=== PATIENT | female | born 1940 | race Caucasian/White ===

== ENCOUNTER 2024-06-29 14:50 | Observation (INO) ==
--- NOTE | 2024-06-29 15:08 | Emergency Department Note ---
Impression & Plan Stroke-like symptoms, Hypertension ED Provider Note Provider: Handy Anders MD CHIEF COMPLAINT: Gait issues, speech issues, dizzy HISTORY OF PRESENT ILLNESS: Patient is a 84-year-old female generally healthy history of carpal tunnel release present with today noting that since 4 AM yesterday she is woke up and had dizziness issues varying intensity. Today it seems like her gait was more unsteady and she is holding onto things but has not fallen. Called her doctor's office and staff on the phone were concerned concerned that maybe her speech was a little bit garbled at times. Has been agrees a little bit. No numbness or tingling in the extremities. No weakness in the extremities. No chest pain or shortness of breath noted. No syncope. No history of CVA noted or family history reported. No recent illness or cough or cold symptoms reported. PAST MEDICAL HISTORY: As noted above MEDICATIONS: No current prescription although does get eye injections for macular degeneration SOCIAL HISTORY: , non-smoker PHYSICAL EXAM: GENERAL: alert and oriented in no acute distress on stretcher Head: normocephalic and atraumatic EYES: No injection, discharge or icterus. PERRL, EOMI. NECK: Trachea midline. Supple. ENT: Mucous membranes pink and moist. Pharynx without erythema or exudate. LUNGS: Airway patent. No retractions or tachypnea HEART: Irregular rate and rhythm. No chest wall tenderness ABDOMEN: Soft and non-tender, without guarding or rebound. SKIN: Acyanotic, warm, dry, without rashes EXTREMITIES: Without swelling, tenderness or deformity NEUROLOGICAL: No aphasia. Maybe the very slightest of right facial droop. Maybe a very slight slur to the speech. Normal strength and tone in the extremities. Sensation to gross touch normal. EK bpm normal sinus rhythm with PACs. No PVC. No acute ST segment elevation or depression with QTc of 451. CONTINUOUS CARDIAC MONITORING: was ordered and showed a heart rate of bpm in Patient's laboratory studies and imaging reviewed. Differential includes Infection, dehydration, metabolic abnormality, hypo/hyperglycemia, electrolyte disturbance, anemia, hypoxia, cardiac sources, intracerebral event, toxicologic, neurologic, as well as other pathologies. IMPRESSION/MEDICAL DECISION MAKING: Patient made a stroke alert from triage. Immediately sent to CT. Evaluated the patient in room A1. Last known well was more than [address] head per radiology without evidence of acute bleed or infarct noted by report. Patient without hemiplegia. Maybe a very slight right facial droop and slurred speech but otherwise grossly neurologically intact. CT angiograms obtained and per radiology report no acute occlusion stenosis or dissections reported.. Discussed with her she telestroke service. Dizziness started yesterday when she woke at 4 AM the last known well would be Tuesday night at bedtime however did have the speech issues starting around noon today. Is noted to be significantly hypertensive which she does not have a history of upon arrival here. Not having other infectious symptoms and doubt this is meningitic. Do question hypertensive emergency versus occult mild CVA. Does not seem to be in the timeframe for thrombolytics and again has minimal symptoms. Will allow permissive hypertension. UA completed and negative as respiratory viral panel. Discussed with telestroke who agree last known well would be more than 24 hours at this point no indication for thrombolytics. They recommended antiplatelet therapy and admission for further workup. Will allow permissive hypertension although blood pressure is trending improved here. 324 mg aspirin ordered. In discussion with the patient she is concerned this could be a side effect from her eye injections for macular degeneration. In any event we will bring in for further workup. Discussed with her and . Discussed with the hospitalist team here. DIAGNOSIS: Dizziness, strokelike symptoms, hypertensive urgency DISPOSITION: Hospitalist will evaluate Patient was agreeable with this plan. Past Med/Surg History Problem List (Updated 06/29/24 @ 20:20 by Handy Anders M.D.) Stroke-like symptoms (Acute) Hypertension (Acute) Stroke Medical History (Updated 06/29/24 @ 20:20 by Handy Anders M.D.) Macular degeneration Surgical History S/P carpal tunnel release Right. Dr Juarez S/P TKR (total knee replacement) bilateral, uoc Family History Father Tobacco abuse Sister COPD with chronic bronchitis Denies family history of Ovarian cancer Prostate cancer Myocardial infarction Breast cancer Colorectal cancer Social History Smoking Status: Never smoker Second Hand Exposure: No; Do You Dip or Chew Tobacco: No; Hx Alcohol Use: No Hx Substance Use: No Preferred Language: Kyrgyz Communication Ability: Effective Visual Impairment: Limited Hearing Ability: Hard of Hearing Brim Cutter Required: No Beliefs That Will Affect Care: None marital status: Current Living Situation: Spouse current occupational status: retired Feels Safe at Home: Yes Childhood Exposure to Second-Hand Smoke: Yes Diet: regular Dental Care, Regularly: Yes Physical Activity Frequency: Does not Exercise Seatbelt Use: always Sunscreen Use: Yes Assistive Devices: None Allergies Allergies Allergy/AdvReac Type Severity Reaction Status Date / Time warfarin Allergy Unknown NAILS TURN Verified 02/16/24 14:54 BLUE,FELT ILL,WASN'T FEELING HERSELF Home Meds Home Medications Medication Instructions Recorded Confirmed multivitamin 1 tab PO DAILY 02/16/24 06/29/24 Results & Data (ED) Vital Signs Vital Signs - 24 hr 06/29/24 14:54 06/29/24 15:19 06/29/24 15:20 Temperature 36.6 C Temperature Source Temporal Artery Scan Pulse Rate 88 80 Pulse Rate [Finger] 87 Pulse Rhythm [Finger] Regular Pulse Strength [Finger] Normal Respiratory Rate 18 18 20 Respiratory Effort / Characteristics Non-Labored Spontaneous Non-Labored Spontaneous Respiratory Depth Normal Normal Blood Pressure 215/99 H Blood Pressure [Right Arm] 221/100 H Blood Pressure Mean 137 Blood Pressure Mean [Right Arm] 140 Blood Pressure Position Sitting Blood Pressure Position [Right Arm] Sitting Pulse Oximetry 98 94 96 Oxygen Delivery Method Room Air Room Air Room Air Sepsis Recent Fever Within 48 Hours No Sepsis New/Unexplained Change in Mental Status No Sepsis Action Taken by Nursing No Action Required 06/29/24 15:23 Temperature Temperature Source Pulse Rate 84 Pulse Rate [Finger] Pulse Rhythm [Finger] Pulse Strength [Finger] Respiratory Rate Respiratory Effort / Characteristics Respiratory Depth Blood Pressure Blood Pressure [Right Arm] Blood Pressure Mean Blood Pressure Mean [Right Arm] Blood Pressure Position Blood Pressure Position [Right Arm] Pulse Oximetry Oxygen Delivery Method Sepsis Recent Fever Within 48 Hours Sepsis New/Unexplained Change in Mental Status Sepsis Action Taken by Nursing Laboratory Data 06/29/24 15:23 06/29/24 15:23 Lab Results 06/29/24 06/29/24 Range/Units 15:23 15:54 WBC 7.01 (4.8-10.8) K/ul RBC 4.41 (4.20-5.40) M/uL Hgb 13.4 (12.0-16.0) g/dl Hct 39.4 (37.0-47.0) % MCV 89.3 (80.0-100.0) fL MCH 30.4 (25.0-34.0) pg MCHC 34.0 (32.0-36.0) g/dL RDW Std Deviation 42.7 (36.4-46.3) fL RDW Coeff of Mic 13.0 (11.5-14.5) % Plt Count 179 (130-400) K/uL MPV 9.9 (9.4-12.4) fL PT 10.9 (9.0-12.0) Seconds INR 1.0 (0.9-1.1) APTT 25 (21-31) Seconds PTT Ratio 0.9 Sodium 140 (136-145) mmol/L Potassium 3.9 (3.5-5.1) mmol/L Chloride 108 H (98-107) mmol/L Carbon Dioxide 27 (21-32) mmol/L Anion Gap 5 (3-11) BUN 15 (6-23) mg/dl Creatinine 0.83 (0.6-1.2) mg/dl Est Cr Clr Drug Dosing 63.2 ml/min eGFR 69.47 BUN/Creatinine Ratio 18.1 (10-20) Glucose 111 H (70-99(Fasting)) mg/dl Calcium 8.7 (8.6-10.3) mg/dl Magnesium 1.9 (1.7-2.4) mg/dl Total Bilirubin 0.4 (0.2-1.0) mg/dl AST 19 (13-39) U/L ALT 15 (7-52) U/L Alkaline Phosphatase 60 (34-104) U/L Troponin I High Sens 8.8 (0-14) pg/ml Total Protein 6.6 (6.0-8.3) gm/dl Albumin 3.7 (3.4-5.0) gm/dl Globulin 2.9 (2.5-4.0) gm/dl Albumin/Globulin Ratio 1.3 (0.9-2) Urine Color Yellow Urine Appearance Clear (Clear) Urine pH 7.0 (4.5-7.5) Ur Specific [place] 1.043 H (1.000-1.030) Urine Protein Negative (Negative) Urine Glucose (UA) Negative (Negative) Urine Ketones Negative (Negative) Urine Blood Negative (Negative) Urine Nitrite Negative (Negative) Urine Bilirubin Negative (Negative) Urine Urobilinogen Negative (Negative) Ur Leukocyte Esterase Negative (Negative) Adenovirus (PCR) Not Detected (NotDetected) B. pertussis DNA (PCR) Not Detected (NotDetected) B.parapertussis DNA PCR Not Detected (NotDetected) C. pneumoniae DNA (PCR) Not Detected (NotDetected) Coronavirus OC43 (PCR) Not Detected (NotDetected) Coronavirus HKU1 (PCR) Not Detected (NotDetected) Coronavirus 229E (PCR) Not Detected (NotDetected) SARS-CoV-2 (PCR) Not Detected (NotDetected) Coronavirus NL63 (PCR) Not Detected (NotDetected) Human Metapneumovir PCR Not Detected (NotDetected) Influenza Type A (PCR) Not Detected (NotDetected) Influenza Type B (PCR) Not Detected (NotDetected) M. pneumoniae (PCR) Not Detected (NotDetected) Parainfluenza 1 (PCR) Not Detected (NotDetected) Parainfluenza 2 (PCR) Not Detected (NotDetected) Parainfluenza 3 (PCR) Not Detected (NotDetected) Parainfluenza 4 (PCR) Not Detected (NotDetected) RSV (PCR) Not Detected (NotDetected) Entero/Rhino (PCR) Not Detected (NotDetected) Administered Medications Clopidogrel Bisulfate (Clopidogrel Bisulfate 75 Mg Tab) 75 mg PO [facility] Stop: 07/29/24 18:17 Last Admin: 06/29/24 19:36 Dose: 75 mg Documented By: ULYSSES Discontinued Medications Aspirin (Aspirin Chew 324 Mg) 324 mg PO NOW STA Stop: 06/29/24 16:00 Last Admin: 06/29/24 16:01 Dose: 324 mg Documented By: DENIA Ioversol (Optiray 320 125ml) 120 ml IV ONCE ONE Stop: 06/29/24 15:13 Last Admin: 06/29/24 15:13 Dose: 120 ml Documented By: EDK Imaging Data Radiologist's Impression: Chest X-Ray 06/29/24 15:00 XR chest 1V portable CLINICAL HISTORY: stroke alert TECHNIQUE: Single frontal radiograph of the chest was obtained. Comparison: None available at the time of this dictation. FINDINGS: No lines and tubes are seen. Cardiomegaly is noted. The aortic arch is calcified. The lungs are clear. No evidence of pleural effusion or pneumothorax. IMPRESSION: No acute chest disease. ACT 112: Negative or not required by law. Electronically signed by: Leon Alegre M.D. 06/29/2024 3:[address] 06/29/24 15:00 CT head/brain wo con CLINICAL HISTORY: Neuro deficit, acute, stroke suspected Technique: Contiguous axial CT images of the head were acquired from the base of the skull to the vertex without intravenous contrast administration. Images were viewed in brain, subdural and bone windows. Automated dose lowering techniques and/or adjustment according to patient size were utilized for this exam. Comparison: None available at the time of this dictation. Findings: Areas of decreased attenuation are present in the periventricular and subcortical white matter bilaterally consistent with small vessel ischemic disease. Generalized cerebral atrophy with commensurate enlargement of the ventricles, sulci, and cisterns is also present. There is no acute intracranial hemorrhage or evidence of acute territorial infarction. No shift of the midline structures, mass effect, or extra-axial abnormalities are shown. Atherosclerotic calcifications are present in the intracranial segments of the internal carotid arteries. Imaged portions of the paranasal sinuses and mastoid air cells are clear. The orbits appear normal. There are no acute fractures of the calvaria or scalp swelling. Impression: No acute intracranial hemorrhage, no evidence of acute territorial infarction or other acute intracranial disease process. ACT 112: Negative or not required by law. Electronically signed by: Leon Alegre M.D. 06/29/2024 3:12 PM Head CTA 06/29/24 15:05 CT angio head w con CLINICAL HISTORY: 84 years-old Female with dizzy, speech issues. Acute dizziness with strokelike symptoms COMPARISON STUDY: Head CT of same day TECHNIQUE: Following the IV administration of 120 cc of Optiray, CT angiogram of the brain was performed from the skull base to the vertex. Images are reviewed in the axial, sagittal, and coronal planes. 3-D MIPS images are created and assessed. IV contrast was administered without complication. All measurements were obtained according to NASCET criteria. A dose lowering technique was utilized adhering to the principles of ALARA. CT DOSE: 463.78 mGy.cm FINDINGS: CT BRAIN: Dictated separately. CT ANGIOGRAM OF THE BRAIN: The imaged bilateral internal carotid arteries are patent. The bilateral anterior and middle cerebral arteries are also patent. The vertebrobasilar system and posterior cerebral arteries are widely patent. There is no aneurysm, high-grade stenosis, or proximal branch occlusion identified. Dural sinuses appear patent. IMPRESSION: Unremarkable CTA of the head. ACT 112: Negative or not required by law. The above report was generated using voice recognition software. It may contain grammatical, syntax or spelling errors. Electronically signed by: Gerardo Adams M.D. 06/29/2024 3:24 PM Neck CTA 06/29/24 15:05 CT angio neck with con CLINICAL HISTORY: dizzy, speech issues, gait issues TECHNIQUE: CT angiography of the neck was performed following intravenous administration of iodinated contrast. Coronal and sagittal MIPS were obtained from the axial data set and were submitted for review. Automated dose lowering techniques and/or adjustment according to patient size were utilized for this examination. All measurements were calculated based on NASCET criteria. Comparison: None available at the time of this dictation. FINDINGS: Lungs and soft tissues are unremarkable. CTA Neck: A 3 vessel aortic arch is shown. There is no significant atherosclerotic plaque in the aortic arch or the origins of the innominate, left common carotid, and left subclavian arteries. Retropharyngeal course of the bilateral internal carotid arteries noted. The common carotid, external carotid, cervical segments of the internal carotid arteries, and the cervical segments of the vertebral arteries are patent without hemodynamically significant stenosis. The left vertebral artery is dominant. IMPRESSION: No occlusion, hemodynamically significant stenosis, or dissection in the major cervical arteries. Assessment of stenosis of the internal carotid arteries is based on NASCET criteria. ACT 112: Negative or not required by law. Electronically signed by: Leon Alegre M.D. 06/29/2024 3:23 PM Discharge Plan Visit Data Chief Complaint: TIA Symptoms Stated Complaint: DIZZY, SOB, SLURRED SPEECH, CONFUSION ED Provider: Handy Anders Discharge Problem: Stroke-like symptoms, Hypertension Patient Disposition: Admitted As Inpatient Discharge Instructions Interventions: ED Discharge Assessment Last Done: 06/29/24 17:38
[2024-06-29] MEDS: OPTIRAY 320 125ml IV ONE (15:13)
--- NOTE | 2024-06-29 15:13 | CT Scan Report ---
CT head/brain wo con CLINICAL HISTORY: Neuro deficit, acute, stroke suspected Technique: Contiguous axial CT images of the head were acquired from the base of the skull to the katlyn jerald without intravenous contrast administration. Images were viewed in brain, subdural and [facility]. Automated dose lowering techniques and/or adjustment according to patient size were utilized for this exam. Comparison: None available at the time of this dictation. Findings: Areas of decreased attenuation are present in the periventricular and subcortical white matter bilate rally consistent with small vessel ischemic disease. Generalized cerebral atrophy with commensurate e nlargement of the ventricles, sulci, and cisterns is also present. There is no acute intracranial hem orrhage or evidence of acute territorial infarction. No shift of the midline structures, mass effect, or extra-axial abnormalities are shown. Atherosclerotic calcifications are present in the intracran ial segments of the internal carotid arteries. Imaged portions of the paranasal sinuses and mastoid air cells are clear. The orbits appear normal. There are no acute fractures of the calvaria or scalp swelling. Impression: No acute intracranial hemorrhage, no evidence of acute territorial infarction or other acute intracra nial disease process. ACT 112: Negative or not required by law. Electronically signed by: Leon Alegre M.D. 06/29/2024 3:12 PM
--- NOTE | 2024-06-29 15:24 | CT Scan Report ---
CT angio neck with con CLINICAL HISTORY: dizzy, speech issues, gait issues TECHNIQUE: CT angiography of the neck was performed following intravenous administration of iodinated contrast. Coronal and sagittal MIPS were obtained from the axial data set and were submitted for rev iew. Automated dose lowering techniques and/or adjustment according to patient size were utilized fo r this examination. All measurements were calculated based on NASCET criteria. Comparison: None available at the time of this dictation. FINDINGS: Lungs and soft tissues are unremarkable. CTA Neck: A 3 vessel aortic arch is shown. There is no significant atherosclerotic plaque in the aor tic arch or the origins of the innominate, left common carotid, and left subclavian arteries. Retrop haryngeal course of the bilateral internal carotid arteries noted. The common carotid, external carot id, cervical segments of the internal carotid arteries, and the cervical segments of the vertebral ar teries are patent without hemodynamically significant stenosis. The left vertebral artery is dominant . IMPRESSION: No occlusion, hemodynamically significant stenosis, or dissection in the major cervical arteries. Assessment of stenosis of the internal carotid arteries is based on NASCET criteria. ACT 112: Negative or not required by law. Electronically signed by: Leon Alegre M.D. 06/29/2024 3:23 PM
--- NOTE | 2024-06-29 15:25 | CT Scan Report ---
CT angio head w con CLINICAL HISTORY: 84 years-old Female with dizzy, speech issues. Acute dizziness with strokelike s ymptoms COMPARISON STUDY: Head CT of same day TECHNIQUE: Following the IV administration of 120 cc of Optiray, CT angiogram of the brain was perfor med from the skull base to the vertex. Images are reviewed in the axial, sagittal, and coronal planes . 3-D MIPS images are created and assessed. IV contrast was administered without complication. All me asurements were obtained according to NASCET criteria. A dose lowering technique was utilized adherin g to the principles of ALARA. CT DOSE: 463.78 mGy.cm FINDINGS: CT BRAIN: Dictated separately. CT ANGIOGRAM OF THE BRAIN: The imaged bilateral internal carotid arteries are patent. The bilateral anterior and middle cerebral arteries are also patent. The vertebrobasilar system and posterior cerebral arteries are widely armenta nt. There is no aneurysm, high-grade stenosis, or proximal branch occlusion identified. Dural sinuses appear patent. IMPRESSION: Unremarkable CTA of the head. ACT 112: Negative or not required by law. The above report was generated using voice recognition software. It may contain grammatical, syntax o r spelling errors. Electronically signed by: Gerardo Adams M.D. 06/29/2024 3:24 PM
[2024-06-29 15:37] LABS: Hematocrit (blood only) 39.4 % (37.0-47.0); Hemoglobin 13.4 g/dl (12.0-16.0); Mean Corpuscular Hemoglobin 30.4 pg (25.0-34.0); Mean Corpuscular Volume 89.3 fL (80.0-100.0); Mean Platelet Volume 9.9 fL (9.4-12.4); Platelet Count 179 K/uL (130-400); RDW Standard Deviation 42.7 fL (36.4-46.3); Red Blood Count 4.41 M/uL (4.20-5.40); White Blood Count 7.01 K/ul (4.8-10.8)
--- NOTE | 2024-06-29 15:40 | XRay Report ---
XR chest 1V portable CLINICAL HISTORY: stroke alert TECHNIQUE: Single frontal radiograph of the chest was obtained. Comparison: None available at the time of this dictation. FINDINGS: No lines and tubes are seen. Cardiomegaly is noted. The aortic arch is calcified. The lungs are clear . No evidence of pleural effusion or pneumothorax. IMPRESSION: No acute chest disease. ACT 112: Negative or not required by law. Electronically signed by: Leon Alegre M.D. 06/29/2024 3:38 PM
[2024-06-29] MEDS: ASPIRIN CHEW 324 MG PO STA (16:01)
[2024-06-29 16:02] LABS: Albumin Globulin Ratio 1.3 (0.9-2); Albumin Level 3.7 gm/dl (3.4-5.0); BUN Creatinine Ratio 18.1 (10-20); Bilirubin,Total 0.4 mg/dl (0.2-1.0); Calcium 8.7 mg/dl (8.6-10.3); Creatinine Clr Calc Pharmacy 63.2 ml/min; Globulin 2.9 gm/dl (2.5-4.0); Magnesium 1.9 mg/dl (1.7-2.4); Potassium 3.9 mmol/L (3.5-5.1); Total Protein 6.6 gm/dl (6.0-8.3)
[2024-06-29 16:08] LABS: Appearance Urine Clear (Clear); Bilirubin Urine Negative (Negative); Blood Urine Negative (Negative); Color Urine Yellow; Glucose Urine UA Negative (Negative); Ketones Urine Negative (Negative); Leukocyte Esterase Urine Negative (Negative); Nitrite Urine Negative (Negative); Protein Urine Negative (Negative); Specific Gravity Urine 1.043 (1.000-1.030); Urobilinogen Urine Negative (Negative)
[2024-06-29 16:09] LABS: Troponin I High Sensitivity 8.8 pg/ml (0-14)
[2024-06-29 16:10] LABS: Partial Thromboplastin Ratio 0.9; Partial Thromboplastin Time 25 Seconds (21-31); Prothrombin Time 10.9 Seconds (9.0-12.0)
[2024-06-29 16:19] LABS: Adenovirus PCR Not Detected (NotDetected); Bordetella parapertussis PCR Not Detected (NotDetected); Bordetella pertussis PCR Not Detected (NotDetected); Chlamydia pneumoniae PCR Not Detected (NotDetected); Coronavirus 229E PCR Not Detected (NotDetected); Coronavirus CoV-2 (COVID19)PCR Not Detected (NotDetected); Coronavirus HKU1 PCR Not Detected (NotDetected); Coronavirus NL63 PCR Not Detected (NotDetected); Coronavirus OC43PCR Not Detected (NotDetected); Human Metapneumovirus PCR Not Detected (NotDetected); Influenza A PCR Not Detected (NotDetected); Influenza B PCR Not Detected (NotDetected); Mycoplasma pneumoniae PCR Not Detected (NotDetected); Parainfluenza Virus 1 PCR Not Detected (NotDetected); Parainfluenza Virus 2 PCR Not Detected (NotDetected); Parainfluenza Virus 3 PCR Not Detected (NotDetected); Parainfluenza Virus 4 PCR Not Detected (NotDetected); Respiratory Syncytial VirusPCR Not Detected (NotDetected); Rhinovirus/Enterovirus PCR Not Detected (NotDetected)
[2024-06-29 17:36] VITALS: RESP 18
--- NOTE | 2024-06-29 17:39 | History & Physical Report ---
Date of Service June 29, 2024 Assessment & Plan (1) Stroke: Plan: 84-year-old woman with history of macular degeneration on no home medications presenting with stroke/TIA symptoms she was experiencing lightheadedness/vertigo (resolved), unsteady gait, slight slurring of speech and slight facial droop with which her thinks has improved or resolved on my exam she has mild right facial droop, tongue deviates to the right, mild slurring or deliberateness of speech, questionable right upper extremity drift, right lower extremity weakness. RLE exam is challenged by old injury to foot and ankle. onset of symptoms was 4 AM yesterday thus outside the window for thrombolytics. telestroke neurologist was consulted by the ED and recommended aspirin and plavix, stroke evaluation differential diagnosis includes hypertensive encephalopathy, however, the symptoms are focal so this seems less likely to me # stroke or TIA -admit to PCU under observation -aspirin and plavix, statin -brain MRI -TTE with bubble -monitor neuro exam -permissive hypertension -AM lipid panel, A1c, CBC BMP -PT/OT/ST evals # hypertension - unclear whether situational (ED, anxiety) or could be stroke related. She states her BP is usually in 120s systolic. I see a few elevated readings from old vitals in [facility] -monitor, permissive hypertension for now -prefer IV labetalol PRN severe hypertension vs hydralazine because of safety profile # macular degeneration - she states her eye injections are associated with increased risk of cardiovascular events including stroke - this is a possible adverse event from anti-VEGF injections. Sounds like she may be on Eylea (aflibercept). DVT ppx - SQ heparin 5000u bid She hopes to discharge tomorrow since her grandchildren will be arriving. 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 Yesterday she noticed a gait disturbance and said "I could not walk a straight line yesterday or today if I had to" her noticed some mild slurring of speech and facial asymmetry today and she called the doctor's office, the nurse over the phone instructed her to seek immediate evaluation in the emergency room. She has a history of macular degeneration and gets monthly eye injections for this. She has not noticed any changes in her vision. No headache nausea or vomiting. No overt weakness but she feels like her right hand more than her left hand is somewhat off like it is harder to grasp objects. No numbness of her face or extremities. Her blood pressure was severely elevated when she first arrived in the ED at greater than 220/100, she denies any history of hypertension. On sustained observation her blood pressure has improved without treatment currently in the 180s/low 90s. She has not had any chest pain or dyspnea. No recent URI type symptoms such as fever chills cough sore throat nasal congestion etc. No changes in her hearing, she does have baseline hearing loss. She has no personal history of atrial fibrillation and never has had any symptoms of TIA or stroke in the past. No history of heart disease, and no family history of Stroke or CAD. Allergies Allergy/AdvReac Type Severity Reaction Status Date / Time warfarin Allergy Unknown NAILS TURN Verified 02/16/24 14:54 BLUE,FELT ILL,WASN'T FEELING HERSELF Home Medications Medication Instructions Recorded Confirmed Type multivitamin 1 tab PO DAILY 02/16/24 06/29/24 History Past Med/Surg History Problem List (Updated 06/29/24 @ 17:24 by Kasey Osborne MD) Hypertension Stroke Medical History (Updated 06/29/24 @ 17:24 by Kasey Osborne MD) Macular degeneration Surgical History S/P carpal tunnel release Right. Dr Juarez S/P TKR (total knee replacement) bilateral, uoc Family History Father Tobacco abuse Sister COPD with chronic bronchitis Denies family history of Ovarian cancer Prostate cancer Myocardial infarction Breast cancer Colorectal cancer Social History Smoking Status: Never smoker Second Hand Exposure: No; Do You Dip or Chew Tobacco: No; Hx Alcohol Use: No Hx Substance Use: No Preferred Language: German Visual Impairment: Limited Hearing Ability: Hard of Hearing marital status: Current Living Situation: Spouse current occupational status: retired Feels Safe at Home: Yes Childhood Exposure to Second-Hand Smoke: Yes Diet: regular Dental Care, Regularly: Yes Physical Activity Frequency: Does not Exercise Seatbelt Use: always Sunscreen Use: Yes Review of Systems 2 Review of Systems: All systems reviewed & are unremarkable except as noted in HPI & below Physical Exam 2 Physical Exam: PHYSICAL EXAMINATION Last 24h vital signs reviewed, see documentation in flowsheet General: comfortable appearing, no distress HEENT: Normocephalic, atraumatic, pupils round and equal, sclerae anicteric, no conjunctival injection, moist mucus membranes Lungs: Normal respiratory effort. Clear to auscultation bilaterally. No RRW Heart: irregularly irregular rate and rhythm, no murmurs. No JVD Abdomen: Soft, nontender, nondistended. Bowel sounds present. Extremities: Warm, dry, well-perfused. No extremity edema. chronic deformity of right foot and ankle from an old injury. bilateral TKA scars Neuro: Alert and oriented x 4, mild right facial droop, tongue deviates to the right, I cannot see her posterior pharynx, EOMI, no nystagmus, she has very poor vision in her right eye visual field is full with her left eye, she is hard of hearing, shoulder shrug is intact, strength exam remarkable for possibly very subtle right upper extremity pronator drift versus normal, biceps triceps deltoids and commercial leasing manager are 5 out of 5 bilaterally, right hip flexor is significant weaker than left, right dorsi flexion is weak left is normal, plantarflexion is 5 out of 5 bilaterally. FNF and CYNDI normal for UEs. Unable to to HTS because of hip mobility/TKAs Psych: Normal affect and behavior Results & Data Results & Data Vital Signs (Past 12 Hours) Vital Signs Temp Pulse Pulse Resp BP BP Pulse Ox 06/29/24 15:23 84 06/29/24 15:20 87 20 221/100 H 96 06/29/24 15:19 80 18 94 06/29/24 14:54 97.9 F 88 18 215/99 H 98 O2 Del Method 06/29/24 15:23 06/29/24 15:20 Room Air 06/29/24 15:19 Room Air 06/29/24 14:54 Room Air Laboratory Results 06/29/24 15:23 06/29/24 15:23 CBC is normal as above and renal function is normal, electrolytes are normal including magnesium additional data I reviewed includes normal coags, high-sensitivity troponin normal at 8.8, normal LFTs, normal LFTs, negative urinalysis, respiratory bio fire panel is normal/negative Diagnostic Findings I personally reviewed her EKG tracing machine read as atrial fibrillation however I do not see atrial fibrillation, she clearly has P waves with some PACs Chest X-Ray 06/29/24 15:00 XR chest 1V portable CLINICAL HISTORY: stroke alert TECHNIQUE: Single frontal radiograph of the chest was obtained. Comparison: None available at the time of this dictation. FINDINGS: No lines and tubes are seen. Cardiomegaly is noted. The aortic arch is calcified. The lungs are clear. No evidence of pleural effusion or pneumothorax. IMPRESSION: No acute chest disease. ACT 112: Negative or not required by law. Electronically signed by: Leon Alegre M.D. 06/29/2024 3:[address] 06/29/24 15:00 CT head/brain wo con CLINICAL HISTORY: Neuro deficit, acute, stroke suspected Technique: Contiguous axial CT images of the head were acquired from the base of the skull to the vertex without intravenous contrast administration. Images were viewed in brain, subdural and bone windows. Automated dose lowering techniques and/or adjustment according to patient size were utilized for this exam. Comparison: None available at the time of this dictation. Findings: Areas of decreased attenuation are present in the periventricular and subcortical white matter bilaterally consistent with small vessel ischemic disease. Generalized cerebral atrophy with commensurate enlargement of the ventricles, sulci, and cisterns is also present. There is no acute intracranial hemorrhage or evidence of acute territorial infarction. No shift of the midline structures, mass effect, or extra-axial abnormalities are shown. Atherosclerotic calcifications are present in the intracranial segments of the internal carotid arteries. Imaged portions of the paranasal sinuses and mastoid air cells are clear. The orbits appear normal. There are no acute fractures of the calvaria or scalp swelling. Impression: No acute intracranial hemorrhage, no evidence of acute territorial infarction or other acute intracranial disease process. ACT 112: Negative or not required by law. Electronically signed by: Leon Alegre M.D. 06/29/2024 3:12 PM Head CTA 06/29/24 15:05 CT angio head w con CLINICAL HISTORY: 84 years-old Female with dizzy, speech issues. Acute dizziness with strokelike symptoms COMPARISON STUDY: Head CT of same day TECHNIQUE: Following the IV administration of 120 cc of Optiray, CT angiogram of the brain was performed from the skull base to the vertex. Images are reviewed in the axial, sagittal, and coronal planes. 3-D MIPS images are created and assessed. IV contrast was administered without complication. All measurements were obtained according to NASCET criteria. A dose lowering technique was utilized adhering to the principles of ALARA. CT DOSE: 463.78 mGy.cm FINDINGS: CT BRAIN: Dictated separately. CT ANGIOGRAM OF THE BRAIN: The imaged bilateral internal carotid arteries are patent. The bilateral anterior and middle cerebral arteries are also patent. The vertebrobasilar system and posterior cerebral arteries are widely patent. There is no aneurysm, high-grade stenosis, or proximal branch occlusion identified. Dural sinuses appear patent. IMPRESSION: Unremarkable CTA of the head. ACT 112: Negative or not required by law. The above report was generated using voice recognition software. It may contain grammatical, syntax or spelling errors. Electronically signed by: Gerardo Adams M.D. 06/29/2024 3:24 PM Neck CTA 06/29/24 15:05 CT angio neck with con CLINICAL HISTORY: dizzy, speech issues, gait issues TECHNIQUE: CT angiography of the neck was performed following intravenous administration of iodinated contrast. Coronal and sagittal MIPS were obtained from the axial data set and were submitted for review. Automated dose lowering techniques and/or adjustment according to patient size were utilized for this examination. All measurements were calculated based on NASCET criteria. Comparison: None available at the time of this dictation. FINDINGS: Lungs and soft tissues are unremarkable. CTA Neck: A 3 vessel aortic arch is shown. There is no significant atherosclerotic plaque in the aortic arch or the origins of the innominate, left common carotid, and left subclavian arteries. Retropharyngeal course of the bilateral internal carotid arteries noted. The common carotid, external carotid, cervical segments of the internal carotid arteries, and the cervical segments of the vertebral arteries are patent without hemodynamically significant stenosis. The left vertebral artery is dominant. IMPRESSION: No occlusion, hemodynamically significant stenosis, or dissection in the major cervical arteries. Assessment of stenosis of the internal carotid arteries is based on NASCET criteria. ACT 112: Negative or not required by law. Electronically signed by: Leon Alegre M.D. 06/29/2024 3:23 PM Medications Administered aspirin Code Status & VTE Plan Code Status full code which I discussed with her VTE Prophylaxis Plan VTE Prophylaxis will be ordered: Yes PG Care Time/CCT Total # of Minutes Spent Total Time Spent with Patient: Total time spent is greater than 50% in coordination of care (as documented) at patient's floor/unit and/or counseling patient: Coding Level of Care Code 68701 INT INP/OBS CARE 375MIN Diagnoses Stroke I63.9 Hypertension I10 Macular degeneration H35.30
--- NOTE | 2024-06-29 17:44 | Electrocardiogram Report ---
Test Reason : Blood Pressure : */* mmHG Vent. Rate : 70 BPM Atrial Rate : * BPM P-R Int : * ms QRS Dur : 92 ms QT Int : 418 ms P-R-T Axes : * 39 17 degrees QTcB Int : 451 ms Sinus rhythm with frequent and consecutive atrial ectopy Abnormal ECG Confirmed by Stan Boston ([id number]) on 06/29/2024 5:44:02 PM Referred By: REFERRED SELF Confirmed By: Stan Botson
[2024-06-29] MEDS ORDERED: POLYETHYLENE (MIRALAX) 17 GM PACK PO PRN (18:18)
[2024-06-29] MEDS ORDERED: ACETAMINOPHEN 325 MG TAB PO PRN (18:18)
[2024-06-29] MEDS ORDERED: ONDANSETRON INJ 2 MG/ML 2 ML VIAL IV PRN (18:18)
[2024-06-29] MEDS ORDERED: PHARMACIST DISCHARGE MED REC CONSULT PRN (18:18)
[2024-06-29] MEDS ORDERED: MELATONIN 3 MG TAB PO PRN (18:18)
[2024-06-29] MEDS ORDERED: ALUMINUM/MAGNESIUM SUSP 30 ML UDC PO PRN (18:18)
[2024-06-29] MEDS ORDERED: MAGNESIUM HYDROXIDE SUSP 30 ML UDC PO PRN (18:18)
[2024-06-29] MEDS: CLOPIDOGREL BISULFATE 75 MG TAB PO SCH (19:36)
[2024-06-29] MEDS: GADOBUTROL 65ML VIAL IV ONE (20:36)
--- NOTE | 2024-06-29 21:06 | Magnetic Resonance Report ---
Exam(s): MRI HEAD W/WO Contrast IV Amt: 10.5ml gadavist EXAM: MR Head Without and With Intravenous Contrast CLINICAL HISTORY: Reason for exam: possible stroke, balance dizziness slurred speech. TECHNIQUE: Magnetic resonance images of the head/brain without and with intravenous contrast in multiple planes. CONTRAST: Patient received 10.5ml gadavist of IV contrast COMPARISON: CT, CTA 06/29/24 FINDINGS: Brain: Diffusion restriction in the left carmen measuring 13 mm consistent with acute/subacute pontine infarct. No other foci of diffusion restriction. Proximal intracranial flow voids appear normal. No acute intracranial hemorrhage or abnormal extra-axial fluid collection. No mass-effect or shift. Age-related volume loss. Patchy chronic small vessel ischemic changes. No intracranial mass or abnormal enhancement. Ventricles: Unremarkable. No hydrocephalus. Bones/joints: Unremarkable. No acute fracture. Sinuses: Unremarkable as visualized. Mastoid air cells: Trace right mastoid effusion. Orbits: Left lens replacement. IMPRESSION: Diffusion restriction in the left carmen measuring 13 mm consistent with acute/subacute pontine infarct. Communications: Call Doctor Other Electronically signed by: Cameron Draper M.D. 06/29/24 21:05 PM
[2024-06-29] MEDS: HEPARIN SOD 5,000 UNIT/0.5 ML VIAL SQ SCH (21:51)
[2024-06-30 06:16] LABS: Basophils # (auto) 0.07 K/uL (0.00-0.20); Basophils % (auto) 0.9 %; Eosinophils # (auto) 0.41 K/uL (0.00-0.50); Eosinophils % (auto) 5.5 %; Hematocrit (blood only) 37.8 % (37.0-47.0); Hemoglobin 12.8 g/dl (12.0-16.0); Immature Granulocytes # (auto) 0.03 K/uL (0.01-0.20); Immature Granulocytes % (auto) 0.4 %; Lymphocytes # (auto) 1.85 K/uL (1.20-3.40); Lymphocytes % (auto) 24.7 %; Mean Corpuscular Hemoglobin 29.6 pg (25.0-34.0); Mean Corpuscular Hgb Conc 33.9 g/dL (32.0-36.0); Mean Corpuscular Volume 87.5 fL (80.0-100.0); Mean Platelet Volume 9.9 fL (9.4-12.4); Monocytes # (auto) 0.78 K/uL (0.11-0.59); Monocytes % (auto) 10.4 %; Neutrophils # (auto) 4.35 K/uL (1.40-6.50); Neutrophils % (auto) 58.1 %; Platelet Count 178 K/uL (130-400); RDW Standard Deviation 41.6 fL (36.4-46.3); Red Blood Count 4.32 M/uL (4.20-5.40); White Blood Count 7.49 K/ul (4.8-10.8)
[2024-06-30 06:39] LABS: BUN Creatinine Ratio 20.3 (10-20); Calcium 8.7 mg/dl (8.6-10.3); Chol HDL Ratio 4.9 (0-5); Creatinine Clr Calc Pharmacy 70.7 ml/min; Potassium 3.9 mmol/L (3.5-5.1)
[2024-06-30 07:06] LABS: Estimated Average Glucose 114 mg/dl; Hemoglobin A1C 5.6 % (4.5-5.6)
[2024-06-30] MEDS: ATORVASTATIN 40 MG TAB PO SCH (08:22)
[2024-06-30] MEDS: ASPIRIN 81 MG ECTAB PO SCH (08:23)
[2024-06-30 11:17] VITALS: BP 151/77; TEMP 97.7; O2SAT 96
[2024-06-30] MEDS: STROKE PATIENT DISCHARGE STA (13:04)
[2024-06-30 15:15] VITALS: PULSE 75
--- NOTE | 2024-06-30 16:59 | Discharge Summary ---
Discharge Summary Date of Service June 30, 2024 Principal Dx & Hospital Course #1 = Principal Diagnosis (1) Stroke: 84-year-old woman with history of macular degeneration on no home medications presenting with stroke/TIA symptoms. onset of symptoms was 4 AM the day prior to admission thus outside the window for thrombolytics. telestroke neurologist was consulted by the ED and recommended aspirin and plavix, stroke evaluation. CTA head and neck was negative for any large vessel occlusions or significant stenoses, head CT without acute findings she was experiencing lightheadedness/vertigo (resolved), unsteady gait, slight slurring of speech and slight facial droop with which her thinks has improved or resolved on my exam she had mild right facial droop, tongue deviates to the right, mild slurring or deliberateness of speech, questionable right upper extremity drift, right lower extremity weakness. RLE exam is challenged by old injury to foot and ankle. brain MRI was obtained and confirmed 13 mm stroke in left carmen which correlates with her symptoms # left pontine stroke symptoms improved she is no longer lightheaded or dizzy, continues to have mild right facial droop tongue deviation mild right upper extremity weakness, mild to moderate right lower extremity weakness. She is able to ambulate with PT and OT with use of a walker she does have unsteady gait and is at increased risk for falls. She adamantly plans to return home today as she has family obligations to attend, declined rehab and home health. She plans to attend outpatient PT as there is a therapist very close to her house who she has worked with in the past and reports is excellent. - CTA head and neck was negative for any large vessel occlusion or significant stenoses - recommend DAPT for 21 days with aspirin and Plavix, then aspirin alone - TTE with bubble - mild concentric LVH, no significant valvular disease, grade 1 diastolic dysfunction, negative bubble study for PFO - she had sinus rhythm with frequent PACs or atrial tachycardia on EKG, 1 brief episode of SVT on telemetry overnight. Made referral for outpatient ambulatory cardiac monitor technician to rule out atrial fibrillation - LDL was in 110s, started atorvastatin 40 mg daily for secondary stroke prevention - hemoglobin A1c was normal - she was hypertensive in the ED but improved significantly in 24 hours, unclear to me whether she has chronic hypertension or not she reports that she is typically normotensive with systolic blood pressure around 120. I gave her a prescription for low-dose lisinopril to initiate if blood pressure remains 130 or higher next week, she will also follow-up with her primary care within 1 to 2 weeks # acute hypertension - partially situational (ED, anxiety) and also stroke related. blood pressure was severely Elevated upon presentation to the ED greater than 200/100, but improved rapidly without treatment. She states her BP is usually in 120s systolic. I [facility] a [facility] she monitor with a home cuff to see whether she has component of chronic hypertension, see above blood pressure at time of discharge was 150/77 # macular degeneration - she states her eye injections are associated with increased risk of cardiovascular events including stroke - this is a possible adverse event from anti-VEGF injections. Sounds like she may be on Eylea (aflibercept). based on my literature review there is not clearly an elevated risk of cardiovascular events with these medications based on population studies. 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 Yesterday she noticed a gait disturbance and said "I could not walk a straight line yesterday or today if I had to" her noticed some mild slurring of speech and facial asymmetry today and she called the doctor's office, the nurse over the phone instructed her to seek immediate evaluation in the emergency room. She has a history of macular degeneration and gets monthly eye injections for this. She has not noticed any changes in her vision. No headache nausea or vomiting. No overt weakness but she feels like her right hand more than her left hand is somewhat off like it is harder to grasp objects. No numbness of her face or extremities. Her blood pressure was severely elevated when she first arrived in the ED at greater than 220/100, she denies any history of hypertension. On sustained observation her blood pressure has improved without treatment currently in the 180s/low 90s. She has not had any chest pain or dyspnea. No recent URI type symptoms such as fever chills cough sore throat nasal congestion etc. No changes in her hearing, she does have baseline hearing loss. She has no personal history of atrial fibrillation and never has had any symptoms of TIA or stroke in the past. No history of heart disease, and no family history of Stroke or CAD. Discharge Exam PHYSICAL EXAMINATION Last 24h vital signs reviewed, see documentation in flowsheet General: comfortable appearing, no distress, seen sitting in chair and walking in hallway HEENT: Normocephalic, atraumatic, pupils round and equal, sclerae anicteric, no conjunctival injection, moist mucus membranes Lungs: normal WOB Heart: deferred. tele review sinus, pac's, 11 beat run of SVT Abdomen: Soft, nontender, nondistended. Bowel sounds present. Extremities: Warm, dry, well-perfused. No extremity edema. Neuro: Alert and oriented x 4, mild right facial droop, mild RLE>RUE weakness Psych: Normal affect and behavior Discharge Plan Discharge Items Patient Disposition: Home - Self-Care Reason For Visit: TIA OR STROKE Discharge Diagnosis: Acute ischemic stroke - left carmen Activity: Per Instructions section Non-emergency contact: Primary Care Provider Call non-emergency contact if: you have any medication questions and your symptoms worsen Follow-up/Referrals: Juan Osei III, CRNP [Primary Care Provider] - 07/16/24 4:00 pm (Hospital follow up scheduled July 16 at 4:00) Diet: Heart Healthy Addtl Attending Provider Instructions: You were treated for acute ischemic stroke - it is a small stroke but affected the middle part of your brain where a lot of nerve fibers are close together It has caused right facial droop, tongue weakness, mild right arm and mild/moderate right leg weakness CT angiogram of your head and neck did not show any blockages in major vessels Take aspirin and Plavix (clopidogrel) together for three weeks. After that you can stop the Plavix and continue aspirin Take atorvastatin - even though your cholesterol numbers are pretty good, statin type medications help treat and prevent heart attack and stroke regardless of the numbers I am not sure whether you need blood pressure medication. The goal after a stroke is normal BP (truly normal like 120/80). Your BP is high yesterday and today because of the stroke. Please buy a home BP cuff (you can get this in the drug store). If your BP is running 130 or higher consistently, start taking lisinopril 2.5 mg daily. I sent a prescription for this. Follow up with Dr. Osei within 1-2 weeks to check BP and adjust medications. Your heart echo is done but not interpreted yet. I will call you with results. Seek immediate medical attention (911) if you have any new or worsening stroke- like symptoms Go to outpatient PT Stay off the stairs unless your is right there to steady you Use your walker at all times It was a pleasure taking care of you in the hospital, Kasey Osborne MD Addtl Supervisor [employer] Provider Instructions: Risk Factors for Stroke: You can reduce your chances of stroke by working with your medical provider to adopt a healthy lifestyle. Some specific ways to lower your chance of stroke are: * If you are a smoker, now is the time to stop smoking cigarettes * If you are diabetic, improve the control of your blood sugars * Avoid excessive amounts of alcohol * Control high blood pressure * Lose weight if you are overweight * Be sure to lead an active lifestyle * Eat a healthy diet low in salt, cholesterol and fat You should know about other risk factors for stroke that you are unable to control. These include: * Age 55 years or older * Male gender * Certain racial groups: , or / * Family History of Stroke, Mini stroke or Heart Attack * Sickle Cell Disease Follow Up: It is important for you to keep your follow up appointments with your medical provider. Who to Call and When: Medical Emergencies: Call 911 immediately if you experience any of the following warning signs and symptoms of Stroke: * Sudden numbness or weakness of the face, arm or leg, especially on one side of the body * Sudden confusion, trouble speaking or understanding * Sudden trouble seeing in one or both eyes * Sudden trouble walking, dizziness, loss of balance or coordination * Sudden severe headache with no cause Do not delay calling 911 if you experience any warning signs or symptoms of a stroke. Delay in seeking medical attention may affect what treatments can be given to you. . Pending Studies at Discharge: Yes Stand-Alone Forms: [facility], Smoking Cessation, Medications to Prevent Stroke Medications and DC Order Prescriptions: New clopidogrel 75 mg Tablet 75 mg PO QAM Qty: 21 0RF atorvastatin 40 mg Tablet 40 mg PO QAM Qty: 30 0RF aspirin 81 mg Tablet,Delayed Release (Dr/Ec) 81 mg PO QAM Qty: 0 0RF Rx Instructions: 81 mg aspirin - buy over the counter lisinopril 2.5 mg tablet 2.5 mg PO DAILY Qty: 30 0RF Rx Instructions: start if BP (top number) consistently 130 or higher next week Continued multivitamin Tablet 1 tab PO DAILY Discharge Orders: Discharge Order (Routine); Ordered 06/30/24 Ordered By: Kasey Gilliam/Other Patient Handouts: Discharge Instructions for Stroke Admission Data Admit Date/Time: 06/29/24 16:32 Attending Provider: Kasey Osborne Admit Provider: Kasey Osborne Primary Care Provider: Juan Osei III Other Providers: Kasey Osborne Other Interventions: Discharge Summary Assessment (RN) Last Done: 06/30/24 13:05 Hospital Stay Data Consultations 06/29/24 16:15 ED Decision to Admit Stat Diagnostic Imagining Performed 06/29/24 15:00 CT head/brain wo con Stat 06/29/24 15:05 CT angio head w con Stat CT angio neck with con Stat 06/29/24 18:18 MR brain wo/w con Urgent Pending Results Patient Have Any Pending Studies at Discharge: Yes Discharge Instructions Given to Patient (Per Discharging Provider) You were treated for acute ischemic stroke - it is a small stroke but affected the middle part of your brain where a lot of nerve fibers are close together It has caused right facial droop, tongue weakness, mild right arm and mild/moderate right leg weakness CT angiogram of your head and neck did not show any blockages in major vessels Take aspirin and Plavix (clopidogrel) together for three weeks. After that you can stop the Plavix and continue aspirin Take atorvastatin - even though your cholesterol numbers are pretty good, statin type medications help treat and prevent heart attack and stroke regardless of the numbers I am not sure whether you need blood pressure medication. The goal after a stroke is normal BP (truly normal like 120/80). Your BP is high yesterday and today because of the stroke. Please buy a home BP cuff (you can get this in the drug store). If your BP is running 130 or higher consistently, start taking lisinopril 2.5 mg daily. I sent a prescription for this. Follow up with Dr. Osei within 1-2 weeks to check BP and adjust medications. Your heart echo is done but not interpreted yet. I will call you with results. Seek immediate medical attention (911) if you have any new or worsening stroke- like symptoms Go to outpatient PT Stay off the stairs unless your is right there to steady you Use your walker at all times It was a pleasure taking care of you in the hospital, Kasey Osborne MD Total Time Total Time Spent Total Time Spent (In Minutes): I personally spent: 45 minutes today on clinical care activities including: reviewing chart notes and vital signs reviewing labs reviewing studies examining and counseling the patient counseling the patient's family writing orders writing prescriptions, discharge instructions documentation Coding Level of Care Code 18795 INP/OBS DISCH >30 MIN Diagnoses Stroke I63.9 Hypertension I10 Macular degeneration H35.30
--- NOTE | 2024-07-02 11:08 | Pharmacy Report ---
Pharmacist Stroke Counseling - Date of Service July 02, 2024 - Scope: Pharmacy has been consulted to provide medication discharge counseling for this patient admitted with [ischemic stroke] [hemorrhagic stroke] [transient ischemic attack] as per the Pharmacist Discharge Counseling for Stroke Patients [employer]. - Medications on Discharge: Home Medications Medication Instructions Recorded Confirmed multivitamin 1 tab PO DAILY 02/16/24 06/29/24 New Rx's Medication Instructions Recorded aspirin 81 mg tablet,delayed 81 mg PO QAM #0 tabs 06/30/24 release atorvastatin 40 mg tablet 40 mg PO QAM #30 tabs 06/30/24 clopidogrel 75 mg tablet 75 mg PO QAM stroke #21 tabs 06/30/24 lisinopril 2.5 mg tablet 2.5 mg PO DAILY #30 tabs 06/30/24 - Action: The above medications, specifically ones for stroke treatment/prophylaxis, have been reviewed in detail with the patient and/or patient entry level sales representative(s) prior to discharge. This includes indication, common adverse reactions, drug interactions, and medication administration. Medication counseling has been employed using the teach-back method to ensure understanding. - Outcome: The patient and/or patient entry level sales representative(s) have demonstrated understanding of the medications. Additional comments: Spoke with Tanesha and her . She has not been able to pick her up her medications yet, but her is heading out now. Reviewed new medications (clopidogrel/ASA x21 days and atorvastatin) and side effects. Tanesha stopped me and expressed was not feeling well at this time, so I gave her and her the number to call back ([phone]) to reach a pharmacist if they did have any questions. Her did express understanding of medication changes. Thank you for allowing pharmacy to be involved in the care of this patient. Please call [phone] with any additional questions
== END 2024-06-30 13:51 | disposition home or self-care (01) ==
LOC: SUATTDRO → ED 14:50 → 2S 14:50
DX: Z86.73 Personal history of transient ischemic attack (TIA), and cerebral infarction without residual deficits; I63.9 Cerebral infarction, unspecified; H35.30 Unspecified macular degeneration; I10 Essential (primary) hypertension; R42 Dizziness and giddiness; Z88.8 Allergy status to other drugs, medicaments and biological substances